=== PATIENT | male | born 1990 | race Caucasian/White ===

== ENCOUNTER 2020-06-01 09:12 | Outpatient (REF) | payer OTHER, SELFPAY ==
[2020-06-01 09:45] LABS: COVID-19 Test Negative (Negative); IDNOW Serial# 08D9AD1C
== END 2020-06-01 09:13 | disposition home or self-care (01) ==
LOC: HO.LAB 09:12
PROVIDERS: Visit Provider Internal Medicine
DX: Z20.822 Contact with and (suspected) exposure to COVID-19 (principal)
CPT/HCPCS: 36415; 87635; C9803

== ENCOUNTER 2020-08-04 09:43 | Outpatient (REF) | payer OTHER, SELFPAY | END 2020-08-04 09:44 | disposition home or self-care (01) | LOC: HO.LAB 09:43 | PROVIDERS: Visit Provider Internal Medicine | DX: Z20.822 Contact with and (suspected) exposure to COVID-19 (principal) | CPT/HCPCS: C9803; U0003; U0005 ==

== ENCOUNTER 2024-07-20 17:13 | Emergency (ER) | payer SELFPAY ==
--- NOTE | ~2024-07-20 | US_ITS ---
CLINICAL HISTORY: RLE swelling, wound Venous duplex ultrasound right lower extremity Comparison: None Findings: The visualized deep veins are fully compressible with normal Doppler color flow and spectral tracings. No popliteal cyst. IMPRESSION: 1. Negative for right lower extremity deep vein thrombosis. This document has been electronically signed by: Eric Barraza MD on 07/20/2024 19:19:29
[2024-07-20 17:28] VITALS: BP 109/67; PULSE 65; RESP 16; TEMP 36.6; O2SAT 97; BMI 31.4
--- NOTE | 2024-07-20 17:28 | ED_ITS ---
HPI - Extremity Injury (Lower) General Chief Complaint: Wound/Laceration Stated Complaint: R leg lac, ?Infected Time Seen by Provider: 07/20/24 19:38 Source: patient, RN notes reviewed and old records reviewed Mode of arrival: ambulatory History of Present Illness ED Provider: Swati Nicolas PA-C HPI Narrative: 34-year-old male with no significant past medical history presenting to the ED complaining of laceration to right calf s/p emily metal door accidentally slamming down/shut on leg at work 1 week ago. Reports increased swelling to RLE. Was not evaluated after incident. Denies fever, chills, drainage from area. Tetanus unknown Related Data Previous Rx's ?Medication ?Instructions ?Recorded cephalexin 500 mg capsule 500 mg PO QID 7 days #28 caps 07/20/24 Allergies Allergy/AdvReac Type Severity Reaction Status Date / Time No Known Allergies Allergy Verified 07/20/24 17:29 [No Known Allergies*] Review of Systems Review of Systems: Yes all other systems are reviewed and are negative Constitutional: Constitutional: Reports as per HPI ON LICENSE OF [facility] Past Medical History Attestation statement: The following information was validated with the patient. Source: old records reviewed Physical Exam Vital Signs: Vital Signs: Last Vital Signs Temp 97.8 F 07/20/24 17:28 Pulse 65 07/20/24 17:28 Resp 16 07/20/24 17:28 BP 109/67 07/20/24 17:28 Pulse Ox 97 07/20/24 17:28 O2 Del Method Room Air 07/20/24 17:28 BMI result Body Mass Index 31.4 Const: General: cooperative, healthy appearing and no acute distress Orientation/consciousness: patient oriented x3 Limitations: no limitations HEENT: Head: Yes normal to inspection and Yes atraumatic Ears: hearing grossly normal bilaterally General nose exam: Normal external nose present Face and sinus: Yes normal facial exam Eyes: General: appearance normal, both eyes and all related structures EOM: EOMs intact bilaterally Neck: Neck: Yes normal visual inspection and Yes no meningeal signs Resp: Effort & Inspection: normal respiratory effort and no respiratory distress Cardio: Rate: regular rate Skin: Other: Healing wound/laceration noted to right posterior calf with mild surrounding erythema. Mildly tender to palpation. No fluctuance/induration or streaking. No lymphangitis. + RLE with pitting edema Rashes: no rashes Neuro: General: patient oriented x3, tone normal and no meningeal signs Cranial nerves: Yes CN's II-XII intact bilaterally Gait exam (Neuro): Normal gait present Extrem: General: Yes normal to inspection Course Course Course Narrative: This is a Rapid Medical Exam performed in triage by Swati Nicolas PA-C. Full HPI, ROS and PE to be performed by primary ED provider. 34 yo M presenting to the ED c/o laceration to right calf x1 week ago s/p rusted metal door slammed down on leg at work. Tetanus unknown. Was not seen after incident. Admits to increasing swelling to RLE. Denies drainage PE: + healing wounds to right posterior calf with surrounding erythema. No pus drainage. No fluctuance/induration. Pitting edema noted to LE Plan: Ultrasound, Tdap US venous duplex LE RT IMPRESSION: 1. Negative for right lower extremity deep vein thrombosis. Results discussed with patient including worrisome signs and symptoms and strict return precautions, and when to return to the emergency department. They verbalized understanding and feel safe for discharge at this time. Medications Administered Discontinued Medications Generic Name Dose Route Start Last Admin Trade Name Freq PRN Reason Stop Dose Admin Diphtheria/Tetanus/Acell Pertussis 0.5 ml 07/20/24 17:30 07/20/24 19:41 Diphth,Pertus(Acell),Tet Adult 0.5 Ml Syringe IM 07/20/24 17:31 0.5 ml .ONCE ONE Administration Medical Decision Making Medical Decision Making [facility] Narrative: 34-year-old male with no significant past medical history presenting to the ED complaining of laceration to right calf s/p emily metal door accidentally slamming down/shut on leg at work 1 week ago. On exam vital signs stable, NAD, nontoxic appearing, physical exam as noted above consistent with infected wound/cellulitis. No evidence of abscess formation. Concern for possible DVT. Compartments soft. Low suspicion for compartment syndrome or necrotizing fasciitis Plan: Ultrasound, p.o. antibiotics Please refer to course for remaining clinical decision making, interpretation of labs/imaging results, and discussions with consultants and/or family members. Differential Diagnosis Differential Diagnoses: The differential diagnosis associated with the presentation includes As above Independent Interpretation I performed an independent interpretation of an: Ultrasound Radiology Impression Discussion of test interpretation with radiology: I have reviewed the radiologist's reading. External Record Review External record reviewed: Inpatient record, Office record, Outpatient record, Prior outpatient labs, Prior outpatient radiology, Primary care record and Outside ED record Tests considered The following testing was considered but not selected: As above Prescription Management I considered prescription management with: Pain Medication Chronic Conditions Patient?s care impacted by: Other Social Determinants Patient?s care significantly limited by Social Determinants of Health including: Other Social Determinant of Health Discharge Plan Discharge Clinical Impression: Cellulitis Patient Disposition: Home, Self-Care Instructions: Cellulitis (ED) Additional Instructions: Keflex as an antibiotic please take as prescribed until completion Keep a close eye in the area, if begins to look infected, is red, there is increased swelling, you have fevers, it is pus drainage from the area return to the ED Please have close follow up with your doctor Your tetanus was updated today Prescriptions: New cephalexin 500 mg capsule 500 mg PO QID 7 Days Qty: 28 0RF Referrals: Physician,None [Primary Care Provider] - 5 days Print Language: Indonesian
[2024-07-20] MEDS: Diphth,Pertus(ACell),Tet Adult 0.5 ML SYRINGE IM (19:41)
[2024-07-20 19:46] VITALS: BP 111/71; PULSE 59; RESP 16; TEMP 36.2; O2SAT 96
[2024-07-20 20:04] VITALS: BP 111/71; PULSE 59; RESP 16; TEMP 36.2; O2SAT 96
== END 2024-07-20 20:05 | disposition home or self-care (01) ==
LOC: HO.ED 20:01
PROVIDERS: Emergency Provider Emergency Medicine
DX: L03.115 Cellulitis of right lower limb (principal); S81.811A Laceration without foreign body, right lower leg, initial encounter; W23.0XXA Caught, crushed, jammed, or pinched between moving objects, initial encounter; M79.661 Pain in right lower leg; R60.0 Localized edema; Y93.9 Activity, unspecified; Y92.9 Unspecified place or not applicable; Y99.0 Civilian activity done for income or pay; M79.89 Other specified soft tissue disorders; Z23 Encounter for immunization
CPT/HCPCS: 90471; 90715; 93971; 99282; 99284

== ENCOUNTER → 2024-07-20 17:30 | Outpatient (BNV) | payer SELFPAY | PROVIDERS: Emergency Provider Emergency Medicine; Visit Provider Radiology Diagnostic Radiology | DX: R22.41 Localized swelling, mass and lump, right lower limb (principal) | CPT/HCPCS: 93971 ==

== ENCOUNTER 2024-08-31 10:56 | Emergency (ER) | payer SELFPAY ==
[2024-08-31 11:02] VITALS: BP 123/79; PULSE 77; RESP 16; TEMP 36.8; O2SAT 96; BMI 31.6
--- NOTE | 2024-08-31 12:43 | ED.GENADULT ---
HPI - General Adult General Chief complaint: Dental/Oral Stated complaint: cellulitis check of face and r ankle Time Seen by Provider: 08/31/24 12:37 Source: patient, RN notes reviewed and old records reviewed Mode of arrival: ambulatory Limitations: no limitations History of Present Illness ED Provider: Jimmy HPI narrative: 34-year-old male presents for evaluation of dental pain and facial pain. Patient reports that his left lower wisdom tooth is causing pain. He reports he is due to have it extracted However he was seen here a month and a half ago for cellulitis of the right lower leg The dentist would not extract his tooth until he was medically cleared from the cellulitis. The patient is still has occasional swelling to the right lower leg, he has had numerous ultrasounds that rule out DVT He does not have any redness, pain to the area He has not had any fevers or chills Related Data Previous Rx's ?Medication ?Instructions ?Recorded cephalexin 500 mg capsule 500 mg PO QID 7 days #28 caps 07/20/24 Allergies Allergy/AdvReac Type Severity Reaction Status Date / Time No Known Allergies (No Known Allergy Verified 08/31/24 11:09 Allergies*) Review of Systems Constitutional: Constitutional: Denies body ache(s), Denies chills, Denies fever(s) and Denies headache(s) Eyes: Eyes: Denies blurry vision and Denies irritation ENT: Denies dizziness, Denies dry mouth and Denies headache(s) Cardiovascular: Cardiovascular: Reports leg edema and Denies dyspnea on exertion Respiratory: Respiratory: Denies cough and Denies dyspnea on exertion Gastrointestinal: Gastrointestinal: Denies abdominal pain, Denies nausea and Denies vomiting Musculoskeletal: Musculoskeletal: Denies back pain Neurologic: Denies dizziness and Denies headache(s) [facility] Social History Social History Advance Directives: No Advance Directives Information Provided: Yes Do you have a plan to hurt others: No Plan Physical Exam ED Vital Signs: Vital Signs - 24 hr 08/31/24 11:02 08/31/24 12:50 Temperature 98.2 F 98.2 F Pulse Rate 77 77 Respiratory Rate 16 16 Blood Pressure 123/79 123/79 Pulse Oximetry 96 96 Oxygen Delivery Method Room Air Room Air BMI result Body Mass Index 31.6 Const General: healthy appearing, comfortable, no acute distress, alert and awake Nutritional Appearance: well nourished Orientation/consciousness: patient oriented x3 HENMT Other: There is minimal gingival edema, no evidence dental abscess Head: Yes normocephalic and Yes atraumatic Eyes Eyelids: Yes eyelids normal Conjunctivae: conjunctivae normal Sclerae: sclerae normal Corneas: corneas normal Pupils: Equal, round and reactive pupils present EOM: EOMs intact bilaterally Neck Neck: Yes full ROM Resp Effort & Inspection: normal respiratory effort, able to speak in complete sentences and not labored GI Inspection: No distended Palpation (GI): Soft to palpation, not firm, nontender, no guarding and not rigid Skin General skin exam: elasticity normal Neuro General: patient oriented x3 Cranial nerves: Yes Equal, round and reactive pupils present and Yes Bilaterally intact EOM present Cognition (Neuro): normal cognition Extrem Other: 1+ pitting edema to the right lower extremity. There was no erythema, no increased warmth. DP and PT pulses 2+ and equal Medical Decision Making Medical Decision Making MDM Narrative: 34-year-old male presents for evaluation of evaluation of his right lower leg cellulitis. He reports that the dentist would not extract his tooth until he did not have any further cellulitis. The patient has mild edema to the right lower leg who but no evidence of active cellulitis, no open wounds, no erythema, no increased warmth, no pain or tenderness. He has been ruled out for DVT. He has tried to follow up with the PCP but could not get an appointment until next April. I do not see any contraindication for a dental extraction based on the patient's right lower leg Differential Diagnosis Differential Diagnoses: The differential diagnosis associated with the presentation includes Medical clearance Facial pain Dental abscess Cellulitis Discharge Plan Discharge Clinical Impression: Atypical face pain Patient Disposition: Home, Self-Care Instructions: Atypical Facial Pain (ED) Additional Instructions: There is no evidence of active cellulitis or other skin disease You have had ultrasound that ruled out DVT or blood clot in the right lower leg You are medically cleared to have a tooth extraction Prescriptions: No Action cephalexin 500 mg capsule 500 mg PO QID 7 Days Qty: 28 0RF Interventions: ED Discharge Assessment Last Done: 08/31/24 12:50 Discharge Date/Time: 08/31/24 12:51 Print Language: French
[2024-08-31 12:50] VITALS: BP 123/79; PULSE 77; RESP 16; TEMP 36.8; O2SAT 96
== END 2024-08-31 12:51 | disposition home or self-care (01) ==
PROVIDERS: Emergency Provider Emergency Medicine Emergency Medical Services
DX: G50.1 Atypical facial pain (principal); R60.0 Localized edema; K08.89 Other specified disorders of teeth and supporting structures
CPT/HCPCS: 99282